=== PATIENT | male | born 1940 | race Caucasian/White ===

== ENCOUNTER → 2016-11-17 | Outpatient (CLI) | payer MEDICARE, BC ==
[~2016-11-17] MED LIST: IMODIUM2 MG PO; LORTAB 7.5-5001 TAB PO; ZESTORETIC 20/21 TAB PO
--- NOTE | ~2016-11-17 | MY26 ---
[facility] A Service of [facility] RADIOLOGY TEXT RESULTS PATIENT: TOPHER DELGADO LOCATION: [facility] : 38 UNIT #: [id number] AGE: [address]: Jonatan Lim MD SEX: M ORDER DR: [id number] [address] [id number] [id number] O MR#: [id number] Acc #: [id number] NAME: TOPHER DELGADO : 1940 SEX: M STUDY DATE/TIME: 11/17/2016 15:11 UNIT: [facility] ROOM: STUDY DESCRIPTION: [facility] W/ CAD BILAT Attending Physician: Jonatan Lim M.D. Ordering Physician: Jonatan Lim M.D. Primary Care Physician: Jonatan Lim M.D. MEDICAL IMAGING REPORT This report is preliminary unless electronic signature is present EXAM Bilateral diagnostic mammogram INDICATIONS 76-year-old male with right subareolar tenderness and palpable mass. PROCEDURE Right CC and MLO views. Two MLO views of the left breast obtained on digital mammography unit; FDA-approved CAD device utilized. COMPARISON None FINDINGS There is bilateral gynecomastia, greater on the right than the left. No suspicious breast mass or calcification is seen. IMPRESSION Bilateral gynecomastia, right greater than left. Recommend clinical followup. Patient's over the age of 40 are entered into a reminder system with target due date for the next mammogram. A result letter will be sent to the patient. BIRADS: 2 Benign findings. Dictated by... Thony Tello M.D. THIS IS AN ELECTRONICALLY VERIFIED REPORT Thony Tello M.D. at 11/17/2016 5:01 PM [facility] A Service of [facility] RADIOLOGY TEXT RESULTS PATIENT: TOPHER DELGADO LOCATION: [facility] : 38 UNIT #: [id number] AGE: [address]: Jonatan Lim MD SEX: M ORDER DR: Woodrow TD: 11/17/2016 16:56 JOB #: [id number] MEDICAL IMAGING REPORT Page 1 of 1 COPY
== END | disposition home or self-care (01) ==
LOC: CMAM 14:45
DX: N62 Hypertrophy of breast (principal); D72.9 Disorder of white blood cells, unspecified
CPT/HCPCS: G0204